=== PATIENT | female | born 1995 | race Caucasian/White ===

== ENCOUNTER 2023-08-03 09:51 | Emergency (ER) | payer OTHER ==
[~2023-08-03] VITALS: Ht 160 cm; Wt 72.6 kg
[2023-08-03] MEDS ORDERED: CEPH-570 PO (10:04)
[2023-08-03 11:03] VITALS: BP 118/60; TEMP 98.2; O2SAT 95
== END 2023-08-03 11:03 ==
LOC: ER 09:58
DX: S69.81XA Other specified injuries of right wrist, hand and finger(s), initial encounter (principal); Z79.899 Other long term (current) drug therapy; Z91.013 Allergy to seafood; X58.XXXA Exposure to other specified factors, initial encounter; Y93.89 Activity, other specified; Y92.89 Other specified places as the place of occurrence of the external cause; Y99.8 Other external cause status